=== PATIENT | female | born 1980 | race Asian ===

== ENCOUNTER → 2024-11-24 | Day surgery (SDC) | payer OTHER ==
[~2024-11-24] MED LIST: ACETAMINOPHEN 1000 MG/100 ML 100 ML IV ONE; DEXAMETHASONE SOD PHOS INJ 4 MG/ML SDV ONE; FAMOTIDINE 20 MG/2 ML VIAL IV ONE; FENTANYL CITRATE/PF 100MCG/2 ML INJ ONE; KETOROLAC TROMETHAMINE 30 MG/ML VIAL ONE; LIDOCAINE HCL 2% LOCAL INJ 5 ML SDV VIAL INJ ONE; MEPERIDINE HCL INJ 25 MG/ML VIAL ONE; ONDANSETRON HCL INJ 2MG/ML 2ML 2 MG/ML VIAL ONE; PROPOFOL IV EMULSION 10 MG/ML 20 ML VIAL ONE; SEVOFLURANE INHAL SOLN 250 ML PEN BTL ONE
[2024-11-24] MEDS: LACTATED RINGER'S 1,000 ML ONE (12:28)
[2024-11-24 14:38] VITALS: TEMP 98.6
[2024-11-24] MEDS: MEPERIDINE HCL INJ 25 MG/ML VIAL IV ONE ×4 (14:45→15:05)
[2024-11-24] MEDS: KETOROLAC TROMETHAMINE 30 MG/ML VIAL IV ONE (14:54)
[2024-11-24 15:50] VITALS: BP 105/80; PULSE 70; RESP 16; O2SAT 100
== END | disposition home or self-care (01) ==
LOC: OR 11:42
PROVIDERS: ATTEND Specialist
DX: N84.3 Polyp of vulva (principal)
CPT/HCPCS: 56605; 81025; 88304; 88342; J0131; J0690; J1100; J1885; J2003; J2175; J2405; J2704; J3010; J7121